=== PATIENT | male | born 1965 | race Hispanic/Latino ===

== ENCOUNTER 2020-09-11 08:46 | Observation (INO) | payer OTHER ==
--- OUTSIDE RECORDS SUMMARY | 2020-09-11 08:50 | XMS REPORT | Continuity of Care Document ---
:1965 Author Organization [facility] t Address [address] [place] [address] Care Team Providers Name Role Phone Stalin Coon DO Attending Clinician Lab, Fam Pob I Attending Clinician Unavailable Doctor Unassigned, Name Attending Clinician Unavailable Tru THOMPSON, H Attending Clinician Problems This patient has no known problems. Allergies, Adverse Reactions, Alerts This patient has no known allergies or adverse reactions. Medications This patient has no known medications. Procedures This patient has no known procedures. Encounters Start End Encounter Admission Attending Care Care Encounter Source Date/Time Date/Time Type Type Clinicians Facility Department ID 2020-07-14 2020-07-14 Patient Shaggy [facility] [id number] 00:00:00 00:00:00 Outreach Stalin KLINE [id number] [facility] [id number] PAVILLION [id number] 2020-05-08 2020-05-08 Laboratory Lab, [facility] [id number] 15:57:58 16:17:58 Only Fam Pob I Health [id number] [place] [id number] Professio [phone] nal [address] One 2020-05-08 2020-05-08 Letter Doctor [place] [id number] 00:00:00 00:00:00 (Out) UnassignedJONATHAN [id number] [facility] [id number] 2020-01-06 2020-01-06 Office Tru [facility] [id number] 09:04:31 10:49:[address] [id number] [place] [id number] Profess [phone] [facility] [address] Building Results This patient has no known results.
[2020-09-11 09:46] LABS: Absolute Lymphocytes (CBC) 1.2 K/uL (0.7-4.9); Basophils % 0.9 % (0-1.3); Hematocrit 41.6 % (39.6-49.0); Lymphocytes % 18.6 % (15.3-44.8); MPV 8.2 fL (7.6-11.3); RBC Red Blood Cell Count 4.89 M/uL (4.33-5.43)
[2020-09-11] MEDS ORDERED: ASPIRIN 81 MG CHEWABLE TABLET ONE (09:48)
[2020-09-11 10:13] LABS: BUN Blood Urea Nitrogen 11 mg/dL (7-18); Bicarbonate 28 mmol/L (21-32); Glucose Level 278 mg/dL (74-106); Magnesium 1.9 mg/dL (1.8-2.4); NT PRO-BNP 14 pg/mL (<125); Potassium 3.9 mmol/L (3.5-5.1); Sodium Level 140 mmol/L (136-145); Troponin (Emerg Dept Use Only) < 0.02 ng/mL (0.0-0.045)
--- NOTE | 2020-09-11 10:35 | RAD REPORT ---
EXAM DESCRIPTION: Nevin Single View09/11/2020 9:50 am CLINICAL HISTORY: Palpitations COMPARISON: none FINDINGS: The lungs appear clear of acute infiltrate. The heart is normal size IMPRESSION: No acute abnormalities displayed
--- NOTE | 2020-09-11 11:09 | EDPHYS ---
Physician Documentation [facility] Name: Maik Perera Age: 55 yrs Sex: Male : 1965 Arrival Date: 09/11/2020 Time: 08:48 Bed 4 Private MD: ED Physician Saturnino Joya HPI: 09/11 10:41 This 55 yrs old Male presents to ER via Ambulatory with complaints of rn Dizziness, lightheaded, sweats. 11:01 The patient presents with dizziness, lightheadedness. Onset: The symptoms/episode rn began/occurred just prior to arrival. Modifying factors: The symptoms are alleviated by nothing, the symptoms are aggravated by nothing. Associated signs and symptoms: Pertinent positives: diaphoresis, Pertinent negatives: abdominal pain, chest pain, combativeness, confusion, head injury, headache, seizure, shortness of breath. Severity of symptoms: At their worst the symptoms were moderate in the emergency department the symptoms have improved. The patient has experienced similar episodes in the past. Reports at work, at rest, sudden onset of lightheadedness, palpitations, and dizziness. No fever, cough. Reports last few weeks has experienced intermittent dyspnea and palpitations with exertion that goes away with rest. Feeling better now while here. Last stress test > 10 years ago. . Historical: - Allergies: 08:55 No Known Allergies; aa5 - PMHx: 08:55 Diabetes - NIDDM; Thyroid problem; Hyperlipidemia; aa5 - PSHx: 08:55 None; aa5 - Immunization history:: Adult Immunizations Adult Immunizations unknown. - Social history:: Smoking status: Patient denies any tobacco usage or history of. Smoking status: . - Family history:: not pertinent. - Hospitalizations: : No recent hospitalization is reported. ROS: 11:01 Constitutional: Negative for fever, chills, and weight loss, Eyes: Negative for injury, rn pain, redness, and discharge, ENT: Negative for injury, pain, and discharge, Neck: Negative for injury, pain, and swelling, Cardiovascular: Negative for chest pain, and edema, Respiratory: Negative for shortness of breath, cough, wheezing, and pleuritic chest pain, Abdomen/GI: Negative for abdominal pain, nausea, vomiting, diarrhea, and constipation, Back: Negative for injury and pain, MS/Extremity: Negative for injury and deformity, Skin: Negative for injury, rash, and discoloration, Neuro: Negative for headache, weakness, numbness, tingling, and seizure. Exam: 11:01 Constitutional: This is a well developed, well nourished patient who is awake, alert, rn and in no acute distress. Head/Face: Normocephalic, atraumatic. Eyes: Pupils equal round and reactive to light, extra-ocular motions intact. Lids and lashes normal. Conjunctiva and sclera are non-icteric and not injected. Cornea within normal limits. Periorbital areas with no swelling, redness, or edema. Neck: Trachea midline, no masses palpated Cardiovascular: Regular rate and rhythm. No pulse deficits. Respiratory: No increased work of breathing, no retractions or nasal flaring. Abdomen/GI: soft, non-tender Skin: Warm, dry with normal turgor. Normal color with no rashes, no lesions, and no evidence of cellulitis. MS/ Extremity: Pulses equal, no cyanosis. Neurovascular intact. Full, normal range of motion. Equal circumference. Neuro: Awake and alert, GCS 15, oriented to person, place, time, and situation. Cranial nerves II-XII grossly intact. Motor strength 5/5 in all extremities. Sensory grossly intact. 11:06 ECG was reviewed by the Attending Physician. rn Vital Signs: 08:55 BP 142 / 96; Pulse 85; Resp 18 S; Temp 97.3(TE); Pulse Ox 98% on R/A; Weight 104.33 kg aa5 (R); Height 5 ft. 10 in. (177.80 cm) (R); 09:33 Pulse 81; Resp 17 S; Pulse Ox 97% on R/A; jd3 10:41 BP 130 / 88; Pulse 83; Resp 17 S; Pulse Ox 96% on R/A; jd3 11:34 BP 127 / 74; Pulse 72; Resp 16 S; Pulse Ox 97% on R/A; jd3 12:38 BP 149 / 87; Pulse 77; Resp 16 S; Pulse Ox 97% on R/A; jd3 13:46 BP 129 / 89; Pulse 71; Resp 15 S; Pulse Ox 100% on R/A; jd3 08:55 Body Mass Index 33.00 (104.33 kg, 177.80 cm) aa5 MDM: 09:04 Patient medically screened. rn 11:06 Differential diagnosis: cardiac arrhythmia, hyperventilation, hypovolemia, idiopathic rn dizziness, near-syncope, vertigo, cardiac etiology. Data reviewed: vital signs, nurses notes, lab test result(s), EKG, radiologic studies, plain films, and as a result, I will discharge patient. Counseling: I had a detailed discussion with the patient and/or guardian regarding: the historical points, exam findings, and any diagnostic results supporting the discharge/admit diagnosis, lab results, radiology results, the need for further work-up and treatment in the hospital. Admission orders: after a detailed discussion of the patient's condition and case, the admit orders are written by me. ED course: Pt without clear etiology, inferolateral twave inversions and reporting intermittent exertional dyspnea, could benefit from cardiac evaluation and updated stress test. Admitted to hospitalist service. . 09/11 09:23 Order name: Glucose, Ancillary Testing; Complete Time: : [facility] 09/11 09:26 Order name: Basic Metabolic Panel; Complete Time: 09/11 09:26 Order name: CBC with Diff; Complete Time: 09/11 09:26 Order name: Magnesium; Complete Time: 09/11 09:26 Order name: NT PRO-BNP; Complete Time: 09/11 09:26 Order name: Troponin (emerg Dept Use Only); Complete Time: 09/11 09:26 Order name: XRAY Chest (1 view); Complete Time: 10:40 09/11 09:26 Order name: EKG; Complete Time: 09/11 09:26 Order name: Cardiac monitoring; Complete Time: : 09/11 10:46 Order name: COVID-19 : Document "Date of Symptom Onset" if Symptomatic. aa5 09/11 11:45 Order name: CONS Physician Consult [facility] 09/11 12:09 Order name: SARS-COV-2 RT PCR [facility] 09/11 09:26 Order name: EKG - Nurse/Tech; Complete Time: : 09/11 09:26 Order name: IV Saline Lock; Complete Time: : 09/11 09:26 Order name: Labs collected and sent; Complete Time: :27 rn 09/11 09:26 Order name: O2 Per Protocol; Complete Time: rn 09/11 09: Order name: O2 Sat Monitoring; Complete Time: rn EC: Rate is 85 beats/min. Rhythm is regular. QRS [place] is Normal. [place] interval is normal. QRS rn interval is normal. QT interval is normal. No Q waves. T waves are Normal. T waves are Inverted in leads II, III, aVF, V5, V6. No ST changes noted. Clinical impression: NSR w/ Non-specific ST/T Changes. Interpreted by me. Reviewed by me. Administered Medications: Drug: Aspirin Chewable Tablet 324 mg Route: PO; tw2 10:30 Follow up: Response: No adverse reaction jd3 Disposition: 09/11/20 11:09 Hospitalization ordered by Jose J Joya for Observation. Preliminary diagnosis are Dizziness and giddiness, Palpitations. - Bed requested for Telemetry/MedSurg (observation). - Status is Observation. jd3 - Condition is Stable. - Problem is new. - Symptoms have improved. Signatures: Dispatcher [employer] EDIA Coleen Easley Roman, MD MD rn Calderon, Audri, RN RN aa5 Lora Dhaliwal RN RN tw2 Kamar Marte RN RN jd3 Corrections: (The following items were deleted from the chart) 11:11 10:46 CORONAVIRUS ordered. EDIA EDMS 12:39 11:09 Hospitalization Ordered by Jose J Joya MD for Observation. Preliminary bd diagnosis is Dizziness and giddiness; Palpitations. Bed requested for Telemetry/MedSurg (observation). Status is Observation. Condition is Stable. Problem is new. Symptoms have improved. rn 14:57 12:39 09/11/2020 11:09 Hospitalization Ordered by Jose J Joya MD for Observation. jd3 Preliminary diagnosis is Dizziness and giddiness; Palpitations. Bed requested for Telemetry/MedSurg (observation). Status is Observation. Condition is Stable. Problem is new. Symptoms have improved. bd
--- NOTE | 2020-09-11 11:09 | ER ---
Nurse's Notes [facility] Name: Maik Perera Age: 55 yrs Sex: Male : 1965 Arrival Date: 09/11/2020 Time: 08:48 Bed 4 Private MD: Diagnosis: Dizziness and giddiness;Palpitations Presentation: 09/11 08:55 Chief complaint: Patient states: "I was at work sitting down and I started feeling aa5 lightheaded and dizzy, every time I turn my head, and I get nauseated". 08:55 Acuity: ROBIBE 3 aa5 08:55 Onset of symptoms was September 2020. aa5 08:55 Coronavirus screen: At this time, the client does not indicate any symptoms associated aa5 with coronavirus-19. Ebola Screen: Patient negative for fever greater than or equal to 101.5 degrees Fahrenheit, and additional compatible Ebola Virus Disease symptoms. Initial Sepsis Screen: Does the patient meet any 2 criteria? No. Patient's initial sepsis screen is negative. Does the patient have a suspected source of infection? No. Patient's initial sepsis screen is negative. Risk Assessment: Do you want to hurt yourself or someone else? Patient reports no desire to harm self or others. 08:55 Method Of Arrival: Ambulatory aa5 Historical: - Allergies: 08:55 No Known Allergies; aa5 - PMHx: 08:55 Diabetes - NIDDM; Thyroid problem; Hyperlipidemia; aa5 - PSHx: 08:55 None; aa5 - Immunization history:: Adult Immunizations Adult Immunizations unknown. - Social history:: Smoking status: Patient denies any tobacco usage or history of. Smoking status: . - Family history:: not pertinent. - Hospitalizations: : No recent hospitalization is reported. Screenin:22 Abuse screen: Denies threats or abuse. Nutritional screening: No deficits noted. tw2 Tuberculosis screening: No symptoms or risk factors identified. Fall Risk None identified. Assessment: 09:06 Reassessment: provider at bedside at this time. tw2 09:25 General: Appears in no apparent distress. uncomfortable, Behavior is calm, cooperative, jd3 appropriate for age. Pain: Complains of pain in chest Quality of pain is described as pressure. Neuro: Level of Consciousness is awake, alert, obeys commands, Oriented to person, place, time, situation, Reports dizziness, Denies weakness paresthesias numbness. Cardiovascular: Capillary refill < 3 seconds Patient's skin is warm and dry. Rhythm is regular. Respiratory: Airway is patent Respiratory effort is even, unlabored, Respiratory pattern is regular, symmetrical, Denies cough, shortness of breath. GI: No signs and/or symptoms were reported involving the gastrointestinal system. : No signs and/or symptoms were reported regarding the genitourinary system. EENT: No signs and/or symptoms were reported regarding the EENT system. Derm: Skin is intact, Skin is dry, Skin is normal, Skin temperature is warm. Musculoskeletal: Circulation, motion, and sensation intact. Range of motion: intact in all extremities. 10:41 Reassessment: Patient appears in no apparent distress at this time. No changes from jd3 previously documented assessment. Patient and/or family updated on plan of care and expected duration. Pain level reassessed. Patient is alert, oriented x 3, equal unlabored respirations, skin warm/dry/pink. 11:34 Reassessment: Patient appears in no apparent distress at this time. No changes from jd3 previously documented assessment. Patient and/or family updated on plan of care and expected duration. Pain level reassessed. Patient is alert, oriented x 3, equal unlabored respirations, skin warm/dry/pink. awaiting admission. 12:38 Reassessment: Patient appears in no apparent distress at this time. Patient and/or jd3 family updated on plan of care and expected duration. Pain level reassessed. Patient is alert, oriented x 3, equal unlabored respirations, skin warm/dry/pink. awaiting admission. 13:46 Reassessment: Patient appears in no apparent distress at this time. Patient and/or jd3 family updated on plan of care and expected duration. Pain level reassessed. Patient is alert, oriented x 3, equal unlabored respirations, skin warm/dry/pink. Patient states feeling better. 14:56 Reassessment: Patient appears in no apparent distress at this time. No changes from jd3 previously documented assessment. Patient and/or family updated on plan of care and expected duration. Pain level reassessed. Patient is alert, oriented x 3, equal unlabored respirations, skin warm/dry/pink. Vital Signs: 08:55 BP 142 / 96; Pulse 85; Resp 18 S; Temp 97.3(TE); Pulse Ox 98% on R/A; Weight 104.33 kg aa5 (R); Height 5 ft. 10 in. (177.80 cm) (R); 09:33 Pulse 81; Resp 17 S; Pulse Ox 97% on R/A; jd3 10:41 BP 130 / 88; Pulse 83; Resp 17 S; Pulse Ox 96% on R/A; jd3 11:34 BP 127 / 74; Pulse 72; Resp 16 S; Pulse Ox 97% on R/A; jd3 12:38 BP 149 / 87; Pulse 77; Resp 16 S; Pulse Ox 97% on R/A; jd3 13:46 BP 129 / 89; Pulse 71; Resp 15 S; Pulse Ox 100% on R/A; jd3 08:55 Body Mass Index 33.00 (104.33 kg, 177.80 cm) aa5 ED Course: 08:48 Patient arrived in ED. am2 08:55 Arm band placed on Patient placed in an exam room, on a stretcher. aa5 09:04 Saturnino Joya MD is Attending Physician. rn 09:08 Patient has correct armband on for positive identification. Placed in gown. Bed in low mh5 position. Call light in reach. Side rails up X 1. Adult w/ patient. Warm blanket given. lunchroom monitor on. Pulse ox on. NIBP on. 09:08 EKG done, by ED staff, reviewed by Saturnino Joya MD. mh5 09:15 Inserted saline lock: 20 gauge in left antecubital area, using aseptic technique. Blood jd3 collected. 09:20 Triage completed. aa5 09:25 Kamar Marte, RN is Primary Nurse. jd3 09:28 Troponin (emerg Dept Use Only) Sent. mh5 09:29 NT PRO-BNP Sent. mh5 09:29 Magnesium Sent. mh5 09:29 CBC with Diff Sent. mh5 09:29 Basic Metabolic Panel Sent. mh5 09:50 XRAY Chest (1 view) In Process Unspecified. EDMS 11:08 Jose J Joya MD is Hospitalizing Provider. rn 13:46 No provider procedures requiring assistance completed. Patient admitted, IV remains in jd3 place. Administered Medications: 09:30 Drug: Aspirin Chewable Tablet 324 mg Route: PO; tw2 10:30 Follow up: Response: No adverse reaction jd3 Outcome: 11:09 Decision to Hospitalize by Provider. rn 14:56 Admitted to Med/surg accompanied by tech, via wheelchair, room 230, with chart, Report jd3 called to Jeanne RN 14:56 Condition: stable 14:56 Instructed on the need for admit, Demonstrated understanding of instructions. 14:57 Patient left the ED. thuan Signatures: Dispatcher [employer] EDMS Saturnino Joya MD MD rn Calderon, Audri RN RN aa5 Lora Dhaliwal RN RN tyson2 Nancy Ruvalcaba [facility] Tonia Alfaro Kamar Luz RN RN jd3
--- NOTE | 2020-09-11 11:51 | P.HP ---
Certification for Inpatient Patient admitted to: Observation With expected LOS: <2 Midnights Practitioner: I am a practitioner with admitting privileges, knowledge of patient current condition, hospital course, and medical plan of care. Services: Services provided to patient in accordance with Admission requirements found in Title 42 Section 412.3 of the Code of Federal Regulations Patient History Date of Service: 09/11/20 Reason for admission: Chest pain, Lightheadedness History of Present Illness: 55yo M, PMH: NIDDM2, hypothyroidism, HLD, presents to ED after ~30min episode of feeling lightheaded, diaphoretic, and chest pain. Patient reports having random similar episodes of lightheadedness over the last year or so but typically only last a few seconds at most. This was new with the diaphoresis and chest pain. Chest pain was substernal, described as feeling somewhat like his heartburn. He was sitting at his desk doing routine work tasks for 10-15 min before this o ccurred. He denies any recent stress or spicy foods this morning. He did eat a burrito last night. His work called for EMS, reportedly his BP and glucose were ok. He symptoms resolved prior to arrival to ED. His symptoms were not reproducible on exam. Labwork was rather unremarkable. Trop negative. EKG with nonspecific t wave inversions. Patient's father had [place] in his 50s. Patient is brought in for obs to r/o ACS and monitoring. Allergies No Known Allergies Allergy (Unverified 09/11/20 14:15) Home Medications: Atorvastatin Calcium 1 tab PO BEDTIME 09/11/20 Fenofibrate [Tricor] 1 tab PO DAILY 09/11/20 Glimepiride 2 tab PO DAILY 09/11/20 Levothyroxine [Synthroid*] 1 tab PO DAILY 09/11/20 Metformin HCl [Metformin HCl ER] 2 tab PO DAILY 09/11/20 - Past Medical/Surgical History -: NIDDM2 -: HLD -: Hypothyroidism Past Surgical History: Patient denies surgical history - Family History Father -: Heart disease Notes: Stroke Mother -: Diabetes - Social History Smoking Status: Never smoker Alcohol use: No Place of Residence: Home Review of Systems 10-point ROS is otherwise unremarkable Physical Examination - Physical Exam General: Alert, In no apparent distress, Oriented x3 HEENT: Atraumatic, PERRLA, Mucous membr. moist/pink, EOMI, Sclerae nonicteric Neck: JVD not distended Respiratory: Clear to auscultation bilaterally, Normal air movement Cardiovascular: No edema, Regular rate/rhythm, No murmurs Gastrointestinal: Soft and benign, Non-distended, No tenderness Musculoskeletal: No erythema, No tenderness Integumentary: No rashes Neurological: Normal speech, Normal strength at 5/5 x4 extr, Cranial nerves 3-12 intact, Normal affect - Studies Laboratory Data (last 24 hrs) 09/11/20 09:28: WBC 6.20, Hgb 14.3, Hct 41.6, Plt Count 243 09/11/20 09:28: Sodium 140, Potassium 3.9, BUN 11, Creatinine 1.06, Glucose 278 H, Magnesium 1.9 Assessment and Plan - Advance Directives Does patient have a Living Will: No Does patient have a Durable POA for Healthcare: No Physician Review Additional Text: Problem List Lightheadedness, Diaphoresis, Chest pain NIDDM2 Hypothyroidism HLD -pt with some risk factors for ACS - DM2, family history -initial ekg and trop nonspecific/negative -trend troponin, cardiology consulted, aspirin given in ED, continue statin -episode possibly vertigo, but not reproducible on exam -was sitting down for 10-15 min, unlikely orthostasis, but will check -possible arrhythmia, will monitor on telemetry -has not had labs in several years, will check TSH/Free T4 as well - could contribute to sensations patient was feeling VTE: lovenox Code: full Dispo: anticipate dc home tomorrow Time Spent Managing Pts Care (In Minutes): 60
[2020-09-11] MEDS ORDERED: ONDANSETRON 4 MG/2 ML VIAL IV PRN (15:02)
[2020-09-11 15:33] VITALS: BMI 33.0
[2020-09-11 15:42] LABS: Troponin I < 0.02 ng/mL (0.0-0.045)
[2020-09-11] MEDS: INSULIN -REGULAR HUMAN 50 UNIT/0.5 ML ML SQ SCH ×2 (16:30→20:27)
--- NOTE | 2020-09-11 17:41 | EKG ---
Test Date: 2020-09-11 Test Time: 09:05:38 Tripe Scraper: TATE MEASUREMENT RESULTS: Intervals: Rate: 85 NV: 154 QRSD: 86 QT: 354 QTc: 421 [place]: P: 39 NV: 154 QRS: 34 T: -44 INTERPRETIVE STATEMENTS: Normal sinus rhythm with sinus arrhythmia Anterior infarct, age undetermined T wave abnormality, consider inferolateral ischemia Abnormal ECG No previous ECG available for comparison Electronically Signed On 09-11-20 17:40:01 CDT by Luke Nye
[2020-09-11] MEDS ORDERED: POTASSIUM CL SA 10 MEQ TAB PO ONE (21:00)
[2020-09-11] MEDS ORDERED: ATORVASTATIN 40 MG TAB PO SCH (21:00)
[2020-09-12] MEDS: LEVOTHYROXINE SOD 0.1 MG TAB PO SCH ×2 (04:40→08:22)
[2020-09-12 05:53] LABS: Basophils % 1.4 % (0-1.3); Hematocrit 39.5 % (39.6-49.0); MPV 8.5 fL (7.6-11.3); RBC Red Blood Cell Count 4.65 M/uL (4.33-5.43)
[2020-09-12] MEDS ORDERED: LEVOTHYROXINE SOD 0.075 MG TAB PO SCH ×2 (06:30→09:00)
[2020-09-12 06:50] LABS: Albumin 3.6 g/dL (3.4-5.0); Bilirubin Total 0.7 mg/dL (0.2-1.0); Magnesium 1.8 mg/dL (1.8-2.4); Phosphorus 2.8 mg/dL (2.5-4.9); Potassium 4.1 mmol/L (3.5-5.1); Protein, Total 6.6 g/dL (6.4-8.2)
[2020-09-12] MEDS: INSULIN -REGULAR HUMAN 50 UNIT/0.5 ML ML SQ SCH ×2 (07:30→11:30)
[2020-09-12] MEDS ORDERED: FENOFIBRATE 160 MG TAB PO SCH (09:00)
[2020-09-12] MEDS ORDERED: MAGNESIUM SULFATE 1 gm IVPB 1 GM/100 ML BAG IV ONE (09:00)
[2020-09-12] MEDS ORDERED: ENOXAPARIN 40 MG/0.4 ML SQ SCH (09:00)
[2020-09-12] MEDS ORDERED: ASPIRIN EC 81 MG TAB PO SCH (09:00)
[2020-09-12] MEDS ORDERED: REGADENOSON 0.4 MG/5 ML SYR IV ONE (09:02)
[2020-09-12 11:06] VITALS: O2SAT 96
--- NOTE | 2020-09-12 11:29 | RAD REPORT ---
EXAM DESCRIPTION: NM - Rest Stress Cardiac Imaging - 09/12/2020 11:19 am CLINICAL HISTORY: CP Chest pain. COMPARISON: No comparisons TECHNIQUE: The patient was administered approximately 10mCi of Tc 99m Sestamibi prior to resting SPE CT imaging of the heart. The patient was then administered approximately 30 mCi of Tc 99m Sestamibi f ollowing exercise or pharmacologic stress. Multiplanar SPECT images were reviewed. FINDINGS: No stress induced ischemic defect is seen to suggest stress induced ischemia. Diminished r adiopharmaceutical accumulation along the inferior wall may represent an old infarct with scarring. The end diastolic volume is 93 ml, the end systolic volume is 32 ml, and the ejection fraction is 66 %. IMPRESSION: No stress induced ischemia.
[2020-09-12 12:04] VITALS: BP 130/70; TEMP 97.9
--- NOTE | 2020-09-12 12:45 | P.DS ---
Admission Date: 09/11/20 Discharge Date: 09/12/20 Disposition: ROUTINE DISCHARGE Discharge Condition: GOOD Reason for Admission: Chest pain, Lightheadedness Consultations: Cardiology - Dr. Nye Procedures: CXR (09/11): lungs appear clear of acute infiltrate. The heart is normal size Nuclear Stress Test (09/12): No stress induced ischemia. EF: ~66%, EDV: 93ml, ESV: 32ml TTE (09/12): normal echo, no wall motion abnormality. no effusion. LVEF: 60% Problem List: Lightheadedness, Diaphoresis, Chest pain NIDDM2 Hypothyroidism HLD Brief History of Present Illness: 55yo M, PMH: NIDDM2, hypothyroidism, HLD, presents to ED after ~30min episode of feeling lightheaded, diaphoretic, and chest pain. Patient reports having random similar episodes of lightheadedness over the last year or so but typically only last a few seconds at most. This was new with the diaphoresis and chest pain. Chest pain was substernal, described as feeling somewhat like his heartburn. He was sitting at his desk doing routine work tasks for 10-15 min before this occurred. He denies any recent stress or spicy foods this morning. He did eat a burrito last night. His work called for EMS, reportedly his BP and glucose were ok. He symptoms resolved prior to arrival to ED. His symptoms were not reproducible on exam. Labwork was rather unremarkable. Trop negative. EKG with nonspecific t wave inversions. Patient's father had UT in his 50s. Patient was brought in for obs to r/o ACS and monitoring. Hospital Course: Patient was monitored on telemetry without any arrhythmias / events. Troponins remained negative x 3. He had one brief episode which did not show any change on telemetry. Cardiology evaluated the patient and he underwent echocardiogram and cardiac stress testing which were normal. His symptoms could possibly be due to BPPV vs another inner ear pathology. He is discharged with meclizine if symptoms persist. He is to f/u with his PCP in 3-5 days and ENT in the next few weeks. Vital Signs/Physical Exam: Physical Exam General: Alert, In no apparent distress, Oriented x3 HEENT: Atraumatic, PERRL, Mucous membr. moist/pink, EOMI, Sclerae nonicteric Neck: JVD not distended Respiratory: Clear to auscultation bilaterally, Normal air movement Cardiovascular: No edema, Regular rate/rhythm, No murmurs Gastrointestinal: Soft and benign, Non-distended, No tenderness Musculoskeletal: No erythema, No tenderness Integumentary: No rashes Neurological: Normal speech, Normal strength at 5/5 x4 extr, Cranial nerves 3-12 intact, Normal affect Temp Pulse Resp BP Pulse Ox 97.9 F 88 18 130/70 97 09/12/20 12:00 09/12/20 12:00 09/12/20 12:00 09/12/20 12:00 09/12/20 12:00 Laboratory Data at Discharge: WBC 5.70 K/uL (4.3-10.9) 09/12/20 05:24 Hgb 13.4 g/dL (13.6-17.9) L 09/12/20 05:24 Hct 39.5 % (39.6-49.0) L 09/12/20 05:24 Plt Count 242 K/uL (152-406) 09/12/20 05:24 Sodium 137 mmol/L (136-145) 09/12/20 05:24 Potassium 4.1 mmol/L (3.5-5.1) 09/12/20 05:24 BUN 13 mg/dL (7-18) 09/12/20 05:24 Creatinine 0.97 mg/dL (0.55-1.3) 09/12/20 05:24 Glucose 219 mg/dL (74-106) H 09/12/20 05:24 Phosphorus 2.8 mg/dL (2.5-4.9) 09/12/20 05:24 Magnesium 1.8 mg/dL (1.8-2.4) 09/12/20 05:24 Total Bilirubin 0.7 mg/dL (0.2-1.0) 09/12/20 05:24 AST 13 U/L (15-37) L 09/12/20 05:24 ALT 23 U/L (12-78) 09/12/20 05:24 Alkaline Phosphatase 46 U/L (45-117) 09/12/20 05:24 Troponin I < 0.02 ng/mL (0.0-0.045) 09/11/20 21:13 Home Medications: Atorvastatin Calcium 1 tab PO BEDTIME 09/11/20 Fenofibrate [Tricor*] 1 tab PO DAILY 09/11/20 Glimepiride 2 tab PO DAILY 09/11/20 Levothyroxine Sodium [Levothyroxine] 1 tab PO DAILY 09/11/20 Metformin HCl [Metformin HCl ER] 2 tab PO DAILY 09/11/20 Meclizine HCl [[employer] 2] 25 mg PO TID PRN 10 Days #30 tablet 09/12/20 New Medications: Meclizine HCl [[employer]ram 2] 25 mg PO TID PRN 10 Days #30 tablet PRN Reason: Dizziness Diet: ADA Activity: Ad zonia Followup: Sabino Ott MD [Primary Care Provider] -
--- NOTE | 2020-09-12 13:32 | ECHO ---
HEIGHT: 5 ft 10 in WEIGHT: 230 lb 0 oz DATE OF STUDY: 09/12/[address]: Luke Nye MD 2-DIMENSIONAL: YES M.MODE: YES DOPPLER: YES COLOR FLOW: YES TDS: NO PORTABLE: NO DEFINITY: NO BUBBLE STUDY: NO DIAGNOSIS: CHEST PAIN CARDIAC HISTORY: CATHERIZATION: NO SURGERY: NO PROSTHETIC VALVE: NO PACEMAKER: NO MEASUREMENTS (cm) DIASTOLIC (NORMALS) SYSTOLIC (NORMALS) IVSd 1.1 (0.6-1.2) LA Diam 3.4 (1.9-4.0) LVEF 60% LVIDd 3.2 (3.5-5.7) LVIDs 2.2 (2.0-3.5) %FS 31% LVPWd 1.1 (0.6-1.2) Ao Diam 2.9 (2.0-3.7) 2 DIMENSIONAL ASSESSMENT: RIGHT ATRIUM: NORMAL LEFT ATRIUM: NORMAL RIGHT VENTRICLE: NORMAL LEFT VENTRICLE: NORMAL TRICUSPID VALVE: NORMAL MITRAL VALVE: NORMAL PULMONIC VALVE: NORMAL AORTIC VALVE: NORMAL PERICARDIAL EFFUSION: NONE AORTIC ROOT: NORMAL LEFT VENTRICULAR WALL MOTION: NORMAL. DOPPLER/COLOR FLOW: NORMAL. COMMENTS: NORMAL 2D ECHO WITH DOPPLER. NO WALL MOTION ABNORMALITY. NO EFFUSION. TECHNOLOGIST: BASSEM ARRIETA
--- NOTE | 2020-09-12 13:37 | TREADPHA ---
DX: CHEST PAIN Date of Study: 09/12/20 Ht: 5' 10 " Wt: 230 lb 0 oz Consulting Physician: AROLDO MEDICATIONS: LIPITOR, LOVENOX, NOVOLIN-R HISTORY: DIABETES MELLITUS, HIGH CHOLESTEROL PHYSICIAL EXAMINATION: RESTING B.P.: 134/87 RESTING H.R.: 81 RESTING EKG: NORMAL SINUS RHYTHM, POSSIBLE OLD ANTERIOR MYOCARDIAL INFARCTION. PROTOCOL: LEXISCAN EXERCISE TIME: 3:30 B.P. AT PEAK STRESS: 130/75 IMPRESSION: LEXISCAN STRESS TEST PERFORMED, CARDIOLITE INJECTED PER PROTOCOL. SEE NUCLEAR MEDICINE REPORT. NO SUPRA VENTRICULAR TACHYCARDIA. NO VENTRICULAR TACHYCARDIA, NO ARRHYTMIAS NOTED. PATIENT TOLERATED WELL.
--- NOTE | 2020-09-17 17:06 | CON ---
Date of Consultation: 09/11/2020 Reason For Consultation: Dizziness, lightheadedness, and diaphoresis. History Of Present Illness: Mr. Perera is a 55-year-old male with history of diabetes, hypothyroidism , dyslipidemia. Came in with dizziness, lightheadedness, sweating. He denied any chest pain, nausea , vomiting. He denied any PND, orthopnea, pedal edema, palpitation, or syncope. Was very anxious ab out his symptoms. By the time I saw him, he had a normal EKG, normal chest x-ray, normal blood work. On physical examination, his blood pressure initially was 142/96. Past Medical History: As stated above. Allergies: NONE. Review of Systems: Negative. Social History: Negative. Family History: Negative. Medications: Listed by Dr. Joya. Physical Examination: Vital Signs: Stable, afebrile, sinus rhythm, 98% pulse ox. HEENT: Negative. Neck: Supple without bruit. Chest: Clear. Cardiac: Revealed a regular rhythm and rate. No murmurs, gallops, or rubs. Abdomen: Benign. Extremities: Revealed no clubbing, cyanosis, or edema. Diagnostic Data: Unremarkable. Impression And Plan: I think his symptoms are secondary to benign positional vertigo. I think he ne eds to see an ENT. I doubt we are dealing with any cardiac issues. Echocardiogram is normal. Stres s test is normal. EKG is normal. Chest x-ray is normal. I am comfortable with him going home, patricia cordoba put him on some meclizine and have him see an ENT as an outpatient. ELBA/MORGAN Voice ID: [id number] Report ID: [id number]
== END 2020-09-12 13:37 | disposition home or self-care (01) ==
LOC: ER 08:46 → ERHOLD 11:44 → 2ND 14:19
PROVIDERS: ADMIT Hospitalist; ATTEND Hospitalist
DX: R07.9 Chest pain, unspecified (principal); R42 Dizziness and giddiness; R61 Generalized hyperhidrosis; E11.9 Type 2 diabetes mellitus without complications; E03.9 Hypothyroidism, unspecified; Z20.822 Contact with and (suspected) exposure to COVID-19; E78.5 Hyperlipidemia, unspecified; Z79.84 Long term (current) use of oral hypoglycemic drugs; R94.31 Abnormal electrocardiogram [ECG] [EKG]
CPT/HCPCS: 93005; 93017; 93306; 85025 ×2; 80048; 36415; 83735 ×2; 84100; 82947 ×5; 84443; 84484 ×3; 84439; 80053; 83880; 71045; 97162; 94760 ×3; 78452; 99285; U0003; J1650; J3475; J2785; A9500; G0378